=== PATIENT | female | born 1990 | race Caucasian/White ===

== ENCOUNTER → 2020-09-30 14:52 | Outpatient (CLI) | payer OTHER, SELFPAY ==
--- NOTE | 2020-09-30 | DI.ECHO.S_ITS ---
[place] +---------+ [facility] +---------+ : : [address] : [address] : : : : [id number] : : : : Phone: [phone]---------+ Echocardiogram Report + + :Name: YURY VIEIRA Study Date: 09/30/2020 Height: 65 in : :[facility] ReadingLocation: Weight: 145 lb : : Gender: Female BSA: 1.7 m2 : :: 1990 Age: 29 yrs BP: 121/81 mmHg: :Reason For Study: General exam : :Ordering Physician: JANIA : :MEAGHAN Performed By: Harry Sidhu : :Referring: MEAGHAN DYKES : + + Interpretation Summary Normal sinus rhythm. Normal LV size, wall thickness, wall motion and LV systolic function. EF is 55-60%. Normal chamber sizes. No valvular abnormalities. No prior study available for comparison. Procedure: A two-dimensional transthoracic echocardiogram with color flow and Doppler was performed. The study quality was technically adequate. There is no prior echocardiogram noted for this patient. The patient was in sinus rhythm with heart rates between 68-75 bpm during the exam. Left Ventricle: The left ventricle is normal in size and wall thickness. Left ventricular systolic function is normal. The ejection fraction is estimated to be 55-60%. There are no focal wall motion abnormalities. Diastolic parameters suggest probable normal left ventricular diastolic function and normal filling pressures. Right Ventricle: The right ventricle is normal in size and function. Atria: Both atria are normal in size. There is no Doppler evidence for an interatrial shunt. Mitral Valve: The mitral valve is normal in structure and function. There is no mitral regurgitation noted. Aortic Valve: The aortic valve is normal in structure and function. No aortic regurgitation is present. Tricuspid Valve: The tricuspid valve is normal in structure and function. No tricuspid regurgitation. Pulmonary artery pressures cannot be estimated because of the lack of a measurable TR jet velocity but the IVC suggests a CVP of around 3 mmHg. Pulmonic Valve: The pulmonic valve is normal in structure and function. There is no pulmonic valvular regurgitation. Great Vessels: The aortic root is normal size. The dimensions of the ascending aorta are normal. The IVC is of normal diameter and collapses greater than 50% with a sniff. This suggests a low right atrial pressure of 3 mm Hg. Pericardium/ Pleura There is no pericardial effusion. There is no pleural effusion. MMode/2D Measurements & Calculations LVIDd: 4.9 cm LVOT diam: 2.0 cm LVIDs: 3.3 cm Ao root diam: 2.4 cm FS: 32.2 % asc Aorta Diam: 2.4 cm IVSd: 0.60 cm LVPWd: 0.75 cm LV mcclelland. diameter/BSA (cm/m^2): 2.8 LV sys. diameter/BSA (cm/m^2): 1.9 LA A2 area: 16.4 cm2 RA long axis: 3.8 cm LA A4 area: 14.5 cm2 RA area: 9.0 cm2 LA length (vol): 4.7 cm RA vol: 18.3 ml LA vol: 42.8 ml RA : 10.6 ml/m2 LA vol index: 24.8 ml/m2 IVC diam: 1.6 cm TAPSE: 2.5 cm Doppler Measurements & Calculations Ao V2 max: 131.1 cm/sec LVOT Max Tej: 100.0 cm/sec Ao V2 mean: 91.4 cm/sec LV V1 max P.0 mmHg Ao max P.9 mmHg LV V1 VTI: 20.1 cm Ao mean P.7 mmHg OSCAR(I,D): 2.4 cm2 Ao V2 VTI: 25.8 cm OSCAR(V,D): 2.4 cm2 sev ratio: 0.78 OSCAR indexed to BSA (cm^2/m^2): 1.4 MV E max tej: 107.6 cm/sec PA pr(Accel): 15.6 mmHg MV A max tej: 56.0 cm/sec MV E/A: 1.9 Med Peak E' Tej: 13.4 cm/sec E/E' med: 8.0 Lat Peak E' Tej: 17.4 cm/sec E/E' lat: 6.2 E/e' average: 7.1 MV dec time: 0.20 sec SV(LVOT): 62.7 ml Electronically signed by: Nohemi Maria M.D. on Reading Physician:10/01/2020 06:45 AM
== END ==
PROVIDERS: Referring Provider Orthopaedic Surgery; Visit Provider Orthopaedic Surgery
DX: Z00.00 Encounter for general adult medical examination without abnormal findings (principal)
CPT/HCPCS: 93306